=== PATIENT | female | born 1985 | race Caucasian/White ===

== ENCOUNTER 2016-10-25 11:09 | Emergency (ER) | payer OTHER ==
[~2016-10-25] VITALS: Ht 177.8 cm; Wt 64.4 kg
--- NOTE | 2016-10-25 11:32 | NUR ---
PT IS IN ROOM #2B. DR GARCIA EVALUATED THE PT.
[2016-10-25 11:50] LABS: *BILIRUBIN,URIN NEGATIVE (NEGATIVE); *BLOOD, URINE NEGATIVE (NEGATIVE); *CLARITY,URINE CLOUDY (CLEAR); *COLOR,URINE YELLOW (YELLOW); *KETONES,URINE NEGATIVE (NEGATIVE); *PROTEIN,URINE NEGATIVE (NEGATIVE); LEUKOCYTE ESTERASE ,URINE NEGATIVE (NEGATIVE); NITRITE, URINE NEGATIVE (NEGATIVE); UGLUCOSE NEGATIVE (NEGATIVE)
[2016-10-25 11:51] LABS: *URINE HCG, QUAL NEGATIVE (NEGATIVE)
[2016-10-25 12:01] LABS: BACTERIA,URINE MODERATE /HPF (NONE SEEN); RBC,URINE 0-3 /HPF (0-3); SQUAMOUS EPITHELIAL CELL,UR FEW /HPF (NONE SEEN); URINE AMORPHOUS PHOSPHATES FEW /HPF; WBC,URINE 0-3 /HPF (0-3)
[2016-10-25 12:09] LABS: BASOPHILS % (AUTO) 0.7 % (0.0-2.0); EOSINOPHILS # (AUTO) 0.1 K/uL (0.0-0.7); HEMATOCRIT 44.5 % (37-47); LYMPHOCYTES # (AUTO) 1.8 K/UL (0.8-4.8); LYMPHOCYTES % (AUTO) 28.1 % (20.5-51.5); MEAN CORPUSCULAR HGB CONC 34 g/dL (32.0-37.0); MEAN CORPUSCULAR VOLUME 94.6 FL (81.0-99.0); MONOCYTES # (AUTO) 0.6 K/UL (0.1-1.30); NEUTROPHILS # (AUTO) 3.9 K/UL (1.8-8.9); NEUTROPHILS % (AUTO) 60.2 % (38.5-71.5); PLATELET COUNT (AUTO) 167 K/UL (150-450); WHITE BLOOD COUNT (AUTO) 6.4 K/UL (4.0-11.2)
[2016-10-25 12:23] LABS: BILIRUBIN,DIRECT 0.1 mg/dL (0.0-0.2); BILIRUBIN,TOTAL 0.4 mg/dL (0.2-1.0); CREATININE 0.8 mg/dL (0.6-1.3); POTASSIUM 3.9 mmol/L (3.5-5.1); TOTAL PROTEIN, SERUM 7.1 g/dL (6.4-8.2)
--- NOTE | 2016-10-25 13:27 | NUR ---
PT WAS D/C TO HOME. D/C INSTRUCTIONS GIVEN TO THE PT.
[2016-10-25 13:29] VITALS: BP 133/81
== END 2016-10-25 13:30 | disposition home or self-care (01) ==
LOC: ER 11:09
DX: R10.11 Right upper quadrant pain (principal)
CPT/HCPCS: 36415; 76700; 80048; 80076; 81001; 83690; 84703; 85025; 99285; A4663

== ENCOUNTER 2017-05-16 09:33 | Emergency (ER) | payer OTHER ==
[~2017-05-16] VITALS: Ht 177.8 cm; Wt 68.0 kg
[2017-05-16] MEDS ORDERED: KETOROLAC TROMETHAMINE 60 MG INJ IM ONE ×2 (09:46→09:51)
--- NOTE | 2017-05-16 10:17 | NUR ---
[facility] IM ADMIN EARLIER, PT SIGNED WAIVER FOR RADIALOGY. RADIALOGY STATED THAT URINE HCG TEST REQUIRED, URINE SENT.
[2017-05-16 10:28] LABS: *URINE HCG, QUAL NEGATIVE (NEGATIVE)
--- NOTE | 2017-05-16 11:42 | NUR ---
MSE COMPLETED, PT D/C'D HOME, ACI/RX X 1 GIVEN. PT AMBULATED W/O DIFF/TOOK ALL BELONGINGS.
[2017-05-16 11:43] VITALS: BP 125/72
== END 2017-05-16 11:35 | disposition home or self-care (01) ==
LOC: ER 09:33
DX: S33.5XXA Sprain of ligaments of lumbar spine, initial encounter (principal); X58.XXXA Exposure to other specified factors, initial encounter; Y93.89 Activity, other specified; Y92.89 Other specified places as the place of occurrence of the external cause; Y99.8 Other external cause status
CPT/HCPCS: 72072; 72100; 84703; 96372; 99285; A4663; J1885